=== PATIENT | male | born 2000 | race Hispanic/Latino ===

== ENCOUNTER 2024-05-05 07:05 | Day surgery (SDC) | payer OTHER ==
[2024-05-01 17:41] VITALS: BMI 32.8
[2024-05-05] MEDS ORDERED: fentaNYL 50 mcg/mL 1 mL Vial ONE (08:36)
[2024-05-05] MEDS ORDERED: Bupivacaine PF 0.5% 30 ML VIAL ONE (08:37)
[2024-05-05] MEDS ORDERED: Midazolam HCl 2 mg/2 ml Vial ONE ×2 (08:37→10:22)
[2024-05-05] MEDS ORDERED: HYDROcodone/Acetaminophen 7.5/325 mg Tablet PO PRN ×2 (08:45)
[2024-05-05] MEDS ORDERED: PROPOFOL 20 ML ONE (09:33)
[2024-05-05] MEDS ORDERED: fentaNYL PF 100 MCG/2 ML SYRINGE ONE (09:33)
[2024-05-05] MEDS ORDERED: Rocuronium Bromide 10 MG/ML (10ML VIAL) ONE (09:33)
[2024-05-05] MEDS ORDERED: Lidocaine 1% PF 5 ML VIAL ONE (09:33)
[2024-05-05] MEDS ORDERED: Bupivacaine HCl 0.5%/Epinephrine 1:200,000/PF 30 ml Vial ONE (09:45)
[2024-05-05] MEDS ORDERED: CEFAZOLIN 1 GM VIAL ONE (10:28)
[2024-05-05] MEDS ORDERED: Dexamethasone 20 MG/5 ML VIAL ONE (10:37)
[2024-05-05] MEDS ORDERED: Ondansetron PF 4 MG/2 ML Vial ONE (10:37)
[2024-05-05] MEDS ORDERED: ePHEDrine Sulfate 50 MG/10 ML VIAL ONE (10:57)
== END 2024-05-05 14:53 | disposition home or self-care (01) ==
LOC: SDC 07:05
PROVIDERS: ATTEND Student in an Organized Health Care Education/Training Program
PROC: 3E0T3BZ Introduction of Anesthetic Agent into Peripheral Nerves and Plexi, Percutaneous Approach (ICD-10-PCS; principal; 2024-05-05)
PROC: 0MQ30ZZ Repair Right Elbow Bursa and Ligament, Open Approach (ICD-10-PCS; principal; 2024-05-05)
DX: S53.21XA Traumatic rupture of right radial collateral ligament, initial encounter (principal); S53.441A Ulnar collateral ligament sprain of right elbow, initial encounter; Z79.899 Other long term (current) drug therapy; X50.0XXA Overexertion from strenuous movement or load, initial encounter
CPT/HCPCS: C1713; J0665; J0690; J1100; J2250; J2405; J2704; J3010

== ENCOUNTER 2024-10-12 09:46 | Outpatient (CLI) | payer OTHER | END 2024-10-12 09:47 | disposition home or self-care (01) | LOC: BICRAD 09:46 | PROVIDERS: ATTEND Family Medicine | DX: S50.01XA Contusion of right elbow, initial encounter (principal); M19.021 Primary osteoarthritis, right elbow; M25.421 Effusion, right elbow; M89.9 Disorder of bone, unspecified; Z98.890 Other specified postprocedural states ==